=== PATIENT | female | born 1985 | race Caucasian/White ===

== ENCOUNTER 2016-08-13 08:56 | Emergency (ER) | payer OTHER ==
[~2016-08-13] VITALS: Ht 157.5 cm; Wt 67.0 kg
[~2016-08-13 08:56] MED LIST: FLUT9.9S NASAL; IBUP-1542 PO; LORA-441 PO; OMEP20CA16 PO; XOP15INH IH
[2016-08-13 09:04] VITALS: Ht 157.5 cm; Wt 67.0 kg
[2016-08-13] MEDS ORDERED: KETOROLAC 15 MG INJ IM STA (10:19)
[2016-08-13] MEDS ORDERED: NAPR-260 PO (10:46)
--- NOTE | 2016-08-13 10:51 | ERD ---
ER Documentation Chief Complaint Date/Time DATE: 08/13/16 TIME: 10:49 Chief Complaint neck pain x 5 days denies injury HPI Patient is a 31-year-old female who presents to the ED with bilateral shoulder pain, back pain 5 days. She states that she lifted her 7-year-old son who is autistic and felt pain in her back. She states that the pain moves around on her back. She denies bowel or bladder incontinence. Denies neck pain. Denies headache or dizziness. Denies numbness or tingling. Denies weakness. She states that she is able to walk and move. However she states that her muscles spasms in and out. Denies fever or chills. No other complaints. ROS All systems reviewed and are negative except as per history of present illness. Medications Home Meds Active Scripts Naproxen* (Naprosyn*) 500 Mg Tablet, 500 MG PO BID Y for PAIN AND/OR INFLAMMATION, #30 TAB Prov:MERLIN STYLES PA-C 08/13/16 Fluticasone Propionate (Flonase Allergy Relief) 9.9 Ml [place].susp, 1 SPRAY NASAL DAILY, #1 BOTTLE TO EACH NOSTRIL Prov:NISHANT MAHER PA-C 12/04/15 Ibuprofen* (Motrin*) 600 Mg Tab, 600 MG PO Q6, #30 TAB Prov:NISHANT MAHER PA-C 12/04/15 Lorazepam* (Ativan*) 0.5 Mg Tablet, 0.5 MG PO HS Y for anxiety / sleep, #10 TAB Prov:SISSY SALAMANCA MD 04/10/15 Reported Medications Levalbuterol* (Xopenex* HFA) 15 Gm Inha, 15 GM IH PRN 09/29/12 Omeprazole* (Omeprazole*) 20 Mg Capsule.dr, 20 MG PO DAILY 09/29/12 Allergies Allergies: Coded Allergies: No Known Allergies (Verified Allergy, Unknown, 12/04/15) PMhx/Soc History of Surgery: No Anesthesia Reaction: No Hx Neurological Disorder: No Hx Respiratory Disorders: No Hx Cardiac Disorders: No Hx Psychiatric Problems: No Hx Miscellaneous Medical Probl: No Hx Alcohol Use: No Hx Substance Use: No Hx Tobacco Use: No FmHx Family History: No coronary disease, No diabetes, No other Physical Exam Vitals Vital Signs Date Time Temp Pulse Resp B/P Pulse Ox O2 Delivery O2 Flow Rate FiO2 08/13/16 09:04 98.7 76 18 115/77 99 Physical Exam GENERAL: Well-developed, well-nourished female. Appears in no acute distress. HEAD: Normocephalic, atraumatic. EYES: Pupils are equally reactive bilaterally. EOMs grossly intact. No conjunctival erythema. ENT: Moist mucous membranes. No uvula deviation. No kissing tonsils. No exudates. NECK: Supple. No lymphadenopathy or thyromegaly. No meningismus. negative kernig. negative brudinski. No step-offs or deformities. No spinal tenderness. Range of motion intact and patient able to move in all directions. LUNG: Clear to auscultation bilaterally. No rhonchi, wheezing, rales or coarse breath sounds. HEART: Regular rate and rhythm. No murmurs, rubs or gallops. BACK: No midline tenderness. No spinal or paraspinal tenderness. No step-offs or deformities. No open wounds or lacerations. No erythema or swelling. Nontender on examination. Extremities: Equal pulses bilaterally. No peripheral clubbing, cyanosis or edema. No unilateral leg swelling. NEUROLOGIC: Alert and oriented. Moving all four extremities. 5/5 strength in all extremities. Normal speech. Steady gait. SKIN: Normal color. Warm and dry. No rashes or lesions. Capillary refill < 2 seconds Results 24 hrs Current Medications Medications (Trade) Dose Ordered Sig/Jovita Route PRN Reason Start Time Stop Time Status Last Admin Dose Admin Ketorolac Tromethamine (Toradol) 15 mg ONCE STAT IM 08/13/16 10:19 08/13/16 10:20 DC 08/13/16 10:35 Procedures/MDM ER COURSE: I kept the patient and/or family informed of laboratory and diagnostic imaging results throughout the emergency room course. MEDICATIONS Toradol 15 mg IM. Tolerated well with no adverse reaction. Seen improvement in symptoms. MEDICAL DECISION MAKING: This is a 31-year-old female who presents with back and shoulder pain 5 days. Vital signs were reviewed. Patient is afebrile. Patient is not hypoxic. Patient is not toxic or ill-appearing. Patient likely has muscle strain versus sprain. I do not think any x-rays are warranted at this time as patient has diffuse pain and there is no onset trauma. Patient also does not want any x- rays. Low suspicion for cauda equine syndrome, spinal epidural hematoma, spinal epidural abscess, osteomyelitis, fracture, aortic dissection, AAA, pyelonephritis, nephrolithiasis, septic stone, obstructed stone. Low suspicion for dislocation, fracture, epidural abscess, herniation, osteomyelitis, meningitis, neurological deficit DISCHARGE: At this time, patient is stable for discharge and outpatient management with no new complaints during the ER course. Patient was sent home with Tri and advised to not lift her son and to rest her back using ice heat and anti- inflammatories.. Patient will be discharged home with instructions to recheck for new or worsening symptoms such as fever, nausea, weakness, LOC and to follow up with primary care in the next 1-2 days. Patient was advised to return to the ER for any new or worsening symptoms. Plan was discussed and patient and/ or family understands and agrees. Home instructions were given. Departure Diagnosis: Primary Impression: Back pain Back pain location: low back pain Chronicity: chronic Back pain laterality : bilateral Sciatica presence: without sciatica Qualified Code: M54.5 - Chronic bilateral low back pain without sciatica Condition: Stable Patient Instructions: Back Pain (Acute Or Chronic) Additional Instructions: Llame al doctor MAANA y edin rodri PEREZ PARA DENTRO DE 1-2 KEMP.Dgale a la secretaria que nosotros le instruimos hacer esta perez.Avise o llame si shields condicin se empeora antes de la perez. Regresa aqui si peor o no mejor. relajase, no levante shields adelfo. avila bhakta. MERLIN STYLES PA-C Aug 13, 2016 10:51
== END 2016-08-13 11:04 | disposition home or self-care (01) ==
LOC: FTE 08:56
DX: M54.5 Low back pain (principal); F84.0 Autistic disorder
CPT/HCPCS: 96372; J1885; Z7502

== ENCOUNTER 2017-07-18 12:06 | Emergency (ER) | END 2017-07-18 14:22 | disposition home or self-care (01) ==

== ENCOUNTER 2018-07-12 18:57 | Emergency (ER) | payer SELFPAY ==
[~2018-07-12] VITALS: Wt 62.6 kg
[~2018-07-12 18:57] MED LIST changes: +BUTA1CAP38 PO; +LEVA15HF6 IH; +NAPR-985 PO; -XOP15INH IH
[2018-07-12 19:22] VITALS: BP 135/79; PULSE 85; RESP 20
[2018-07-13] MEDS ORDERED: BUTA1CAP38 PO (10:41)
== END 2018-07-12 23:20 | disposition left against medical advice (07) ==
LOC: FTE 18:57
DX: Z53.21 Procedure and treatment not carried out due to patient leaving prior to being seen by health care provider (principal)

== ENCOUNTER 2018-07-13 09:03 | Emergency (ER) | payer OTHER ==
[~2018-07-13] VITALS: Ht 165.1 cm; Wt 62.3 kg
[2018-07-13 09:17] VITALS: BP 12/72; PULSE 71; RESP 18; Ht 165.1 cm; Wt 62.3 kg
[2018-07-13] MEDS ORDERED: SOD CHLORIDE 0.9% 1,000 ML IV STA (09:59)
[2018-07-13] MEDS ORDERED: METOCLOPRAMIDE 10 MG INJ IV STA (09:59)
[2018-07-13] MEDS ORDERED: KETOROLAC 30 MG INJ IV STA (09:59)
[2018-07-13] MEDS ORDERED: DIPHENHYDRAMINE 50 MG INJ IV STA (09:59)
[2018-07-13] MEDS ORDERED: BUTA1CAP38 PO (10:41)
--- NOTE | 2018-07-13 10:44 | ERD ---
ER Documentation Chief Complaint Chief Complaint headache x 4 days , no neuro deficits HPI This is a 33-year-old female with a history of migraines presents ED with complaints of headache times 4 days. Patient denies any fall or injury to account for headache. Patient describes the headache is slow and rates it at a 5 out of 10. Patient states the headache comes and goes. Patient has had similar headaches in the past. Patient states that she has been seen here before for similar headaches and received IV medication that works for her. Admits to photophobia but denies any visual disturbances. Denies fever, chills, blurry vision, changes in vision, weakness, dizziness, confusion, worse headache of life and other symptoms. No known drug allergies. ROS All systems reviewed and are negative except as per history of present illness. Medications Home Meds Active Scripts Vmcbzjvgkg-Qoltmjpuwzoda-Ldbdnpkd* (Fioricet*) 50-300-40 Mg Capsule, 1 CAP PO Q4H PRN for HEADACHE, #10 CAP Prov:MEGAN GARCIA PA-C 07/13/18 Uewtvgppcy-Auhcuhgilhgqu-Bxpavyzk* (Fioricet*) 50-300-40 Mg Capsule, 1 CAP PO Q4H PRN for migraine, #10 CAP Prov:JERRI KAM DO 07/18/17 Naproxen* (Naprosyn*) 500 Mg Tablet, 500 MG PO BID PRN for PAIN AND/OR INFL AMMATION, #30 TAB Prov:MERLIN STYLES PA-C 08/13/16 Fluticasone Propionate (Flonase Allergy Relief) 9.9 Ml [place].susp, 1 SPRAY NASAL DAILY, #1 BOTTLE TO EACH NOSTRIL Prov:NISHANT MAHER PA-C 12/04/15 Ibuprofen* (Motrin*) 600 Mg Tab, 600 MG PO Q6, #30 TAB Prov:NISHANT MAHER PA-C 12/04/15 Lorazepam* (Ativan*) 0.5 Mg Tablet, 0.5 MG PO HS PRN for anxiety / sleep, #10 TAB Prov:SISSY SALAMANCA MD 04/10/15 Reported Medications Levalbuterol* (Xopenex* HFA) 15 Gm Inha, 15 GM IH PRN 09/29/12 Omeprazole* (Omeprazole*) 20 Mg Capsule.dr, 20 MG PO DAILY 09/29/12 Allergies Allergies: Coded Allergies: No Known Allergies (Verified Allergy, Unknown, 12/04/15) PMhx/Soc History of Surgery: No Anesthesia Reaction: No Hx Neurological Disorder: No Hx Respiratory Disorders: No Hx Cardiac Disorders: No Hx Psychiatric Problems: No Hx Miscellaneous Medical Probl: No Hx Alcohol Use: No Hx Substance Use: No Hx Tobacco Use: No Smoking Status: Never smoker FmHx Family History: No diabetes Physical Exam Vitals Vital Signs Date Temp Pulse Resp B/P (MAP) Pulse Ox O2 O2 Flow FiO2 Time Delivery Rate 07/13/18 98.3 71 18 12/72 (52) 99 09:17 Physical Exam Physical Exam Vitals signs: Reviewed by me. General: Well developed, well nourished, in no acute distress. Patient is awake and alert. Head: Normocephalic, atraumatic. Eyes: Normal conjunctiva, Pupils PERRLA, EOM intact grossly ENT: Pharynx is clear, Moist mucous membranes, external ears, nose and mouth normal Neck: Supple, no masses, lymphadenopathy or JVD Respiratory: Clear to auscultation bilaterally with no wheezing, rhonchi, rales, no distress Cardiovascular: RRR, no murmurs, rubs, or gallops Abdominal: Soft, non-tender, non-distended, no peritoneal signs : Deferred MSK: No edema, no unilateral swelling, 5/5 strength Back: No midline tenderness. No flank tenderness Neurologic: Alert and oriented, moving all extremities, normal speech, no focal weakness, no cerebellar signs. Normal mentation Skin: warm and dry, No rash Psych: Normal mood Results 24 hrs Laboratory Tests Test 07/13/18 10:13 POC Beta HCG, Qualitative NEGATIVE Current Medications Medications Dose Sig/Jovita Start Time Status Last (Trade) Ordered Route PRN Stop Time Admin Dose Reason Admin Sodium 1,000 ml @ Q1H STAT 07/13/18 DC 07/13/18 Chloride 1,000 mls/hr IV 09:59 07/13/18 10:15 10:58 10 mg ONCE STAT 07/13/18 DC 07/13/18 Metoclopramid IV 09:59 07/13/18 10:16 e HCl 10:00 (Reglan) Ketorolac 30 mg ONCE STAT 07/13/18 DC 07/13/18 Tromethamine IV 09:59 07/13/18 10:16 (Toradol) 10:00 25 mg ONCE STAT 07/13/18 DC 07/13/18 Diphenhydrami IV 09:59 07/13/18 10:16 ne HCl 10:00 (Benadryl) Procedures/MDM ER COURSE: The patient was stable throughout ED course. I kept the patient and/or family informed of laboratory and diagnostic imaging results throughout the emergency room course. The patient was promptly evaluated and a treatment plan was devised based on H&P and other data. This plan was discussed with the patient who agreed and had no further questions or concerns prior to discharge. MEDICAL DECISION MAKIN-year-old female presents ED with headache times 3 days. Patient received IV medication in the emergency department reports feeling better. Patient has had similar headaches in the past. The patient's headache is unlikely related to serious etiology. The patient does not exhibit any clinical signs or symptoms, and has no risk factors to suggest headache etiology such as subarachnoid hemorr tiffany, acute vertebral or carotid dissection, intracranial mass, epidural, subdural hematoma, dural venous sinus thrombosis, giant cell arteritis, CVA, encephalitis, meningitis, or pseudotumor cerebri. No evidence of sepsis. Patient's vitals are stable and patient can be managed with close outpatient follow-up. Patient was advised to follow-up with her primary care in the next 48 hours. Return to ED with any worsening symptoms. DISPOSITION PLAN: We discussed follow up with the patient's primary care doctor within 24 to 48 hours. Patient counseled regarding my diagnostic impression and care plan. Prior to discharge all questions answered. Pt agrees with treatment plan and understands strict return precautions. Precautionary instructions provided including instructions to return to the ER if not improving or for any worsening or changing symptoms or concerns. ExitCare instructions provided. Prior to discharge, patients vital signs have been reviewed SPECIALIST FOLLOW UP RECOMMENDED: None Patient has been advised to follow up with primary care in 1-2 days. Disclaimer: Inadvertent spelling and grammatical errors are likely due to EHR/dictation software use and do not reflect on the overall quality of patient care. Also, please note that the electronic time recorded on this note does not necessarily reflect the actual time of the patient encounter. Departure Diagnosis: Primary Impression: Headache Headache type: unspecified Headache chronicity pattern: acute headache Intractability: not intractable Qualified Codes: R51 - Headache Condition: Stable Patient Instructions: What Are Migraine and Tension Headaches?, Self-Care for Headaches, Migraine Headache: Stages and Treatment Referrals: [facility] Usted se bangura hecho un examen mdico de control que le indica que no est en rodri condicin que requiera tratamiento urgente en el Departamento de Emergencia. Un estudio ms profundo y el tratamiento de shields condicin pueden esperar sin ningn riesgo hasta que usted sea atendida/o en el consultorio de shields mdico o rodri clnica. Es responsabilidad suya arreglar rodri kvng para el seguimiento del bryan. MANEJO DE CONDICIONES NO URGENTES EN EL FUTURO 1) Si usted tiene un mdico de atencin primaria: Usted debera llamar a shields mdico de atencin primaria antes de venir al departamento de emergencia. Despus de las horas de consultorio, shields doctor o shields asociado/a est disponible por telfono. El mdico o enfermero de belkys en el servicio telefnico puede asesorarle por heather medio para atender el problema, o bryan contrario se puede programar rodri kvng. 2) Si usted no tiene un mdico de atencin primaria: Llame al mdico o clnica de referencia que aparece abajo elena las horas de consultorio para hacer rodri kvng para que le vean. CLINICAS: [facility] [phone] [facility] [phone] [facility] [phone] [facility]. [facility] [phone] [facility]. [facility] [phone] [facility] [phone] [address] Additional Instructions: Paciente aconseja volver a Departamento de urgencias inmediatamente para sntomas nuevos o que empeoran . Paciente aconseja posteriores con el PCP en 1-2 cho . Paciente verbaliza la comprehensin y est de acuerdo con el tratamiento y el curso de accin. Si el paciente no tiene ninguna de atencin primaria pueden seguir con [facility] [id number] [place] [address] o [facility] + [address] [address] MEGAN GARCIA PA-C Jul 13, 2018 10:44
== END 2018-07-13 11:33 | disposition home or self-care (01) ==
LOC: FTE 09:03
DX: R51 Headache (principal)
CPT/HCPCS: 81025; 96361; 96374; 96375; J1200; J1885; J2765; J7030; Z7502